=== PATIENT | female | born 1955 | race Caucasian/White ===

== ENCOUNTER 2021-02-03 06:58 | Day surgery (SDC) | payer MEDICARE, OTHER ==
[2021-01-30 09:15] VITALS: BMI 25.0
[~2021-02-03 06:58] MED LIST: DEXAMETHASONE SOD PHOSPHATE 4 MG/ML 1 ML VIAL IV ONE; LACTATED RINGERS 1,000 ML IV SCH; ONDANSETRON 4 MG/2 ML VIAL IVP ONE; SODIUM CHLORIDE 0.9% 1,000 ML IV SCH
[2021-02-03] MEDS ORDERED: SODIUM CHLORIDE 0.9% 500 ML 500 ML IV ONE (07:41)
[2021-02-03 07:51] VITALS: RESP 16; TEMP 98.7
[2021-02-03 08:15] LABS: African American GFR (CKD) >90 (>60 ml/min/1.73 sqM); Anion Gap 9 mmol/L; Blood Urea Nitrogen 11 mg/dL (7-17); Calcium 10.4 mg/dL (8.4-10.2); Carbon Dioxide 21 mmol/L (22-30); Chloride 109 mmol/L (98-107); Glucose 114 mg/dL (74-99); Non-African American GFR(CKD) >90 (>60 ml/min/1.73 sqM); Potassium 4.7 mmol/L (3.5-5.1); Sodium 139 mmol/L (137-145)
[2021-02-03] MEDS ORDERED: BENZOCAINE SPRAY 1 CAN MUCOUS MEM ONE (08:35)
[2021-02-03] MEDS ORDERED: LIDOCAINE 1% INJ 10MG/ML (20 ML MDV) ONE (09:30)
[2021-02-03] MEDS ORDERED: PROPOFOL 10 MG/ML 20 ML VIAL IV ONE (09:30)
[2021-02-03] MEDS ORDERED: SODIUM CHLORIDE 0.9% 1,000 ML IV SCH (10:30)
--- NOTE | 2021-02-03 10:45 | P.TEE ---
Indications for Procedure(s): Persistent atrial fibrillation Date of Procedure: 02/03/21 Preoperative Diagnosis: Atrial fibrillation Postoperative Diagnosis: Successful cardioversion to sinus rhythm Procedure(s) Performed: JUAN followed by cardioversion Description of Procedure(s): INDICATION: This patient was recently admitted to the hospital with atrial fibrillation with RVR. Patient's Rate is controlled and anticoagulated. She has history of hypertrophic cardiomyopathy . Patient is advised to have cardioversion CONSENT: . Informed verbal consent is obtained from the patient PROCEDURE: . Patient was brought to the lab in a fasting state. Patient prepped and draped in the usual fashion. Patient is given sedation by department of anesthesia. A lubricated Omni probe was introduced into the oropharynx and not advancing into the esophagus. Multiple views were obtained. Saline contrast bubble injection was performed . Color, pulsed and continuous a Doppler studies were performed. Patient tolerated the procedure well. Patient was not found of any clot in the left atrial appendage. Patient went on to have cardioversion FINDINGS: . The aortic valve is tricuspid with mildly restricted opening excursion with a valve area about 1.9 cm. There appears to be subaortic stenosis with moderate gradient. There is moderate mitral regurgitation. Mitral valve appeared to be slightly thickened. Left atrial appendage is free of any clot. The interatrial septum is intact. There is biatrial enlargement. Left ventricular function appears to be preserved IMPRESSION: . No clot in left atrial appendage. We will proceed with cardioversion. Mild aortic stenosis. Moderate outflow gradient. Moderate to severe concentric hypertrophy. Preserved LV function PLAN: . Proceed with cardioversion
--- NOTE | 2021-02-03 10:47 | P.PCN ---
Date of Procedure: 02/03/21 Preoperative Diagnosis: Atrial fibrillation Postoperative Diagnosis: Successful cardioversion to sinus rhythm Procedure(s) Performed: Cardioversion Description of Procedure: Patient was evaluated by JUAN examination. No clot was noted in the left atrial appendage. Patient went on to have cardioversion. CARDIOVERSION: Patient was given sedation by department of anesthesia. Anteroposterior paddles were applied. Synchronized shock of 75 J followed by one 25 J was applied. Patient converted to sinus rhythm. No immediate complications. Final impression:. Successful cardioversion to sinus rhythm
[2021-02-03 11:01] VITALS: PULSE 72
[2021-02-03 11:19] VITALS: BP 162/81
== END 2021-02-03 11:22 | disposition home or self-care (01) ==
LOC: CATHCVL 06:58
PROVIDERS: ATTEND Internal Medicine Cardiovascular Disease
DX: I48.91 Unspecified atrial fibrillation (principal); I35.0 Nonrheumatic aortic (valve) stenosis; F17.210 Nicotine dependence, cigarettes, uncomplicated; Z79.01 Long term (current) use of anticoagulants; Z79.899 Other long term (current) drug therapy
CPT/HCPCS: 93312; 93320; 93325; 92960; 80048; 87635; J2001; J2704

== ENCOUNTER → 2021-02-26 | Day surgery (SDC) | payer MEDICARE, OTHER ==
[~2021-02-26] MED LIST changes: -DEXAMETHASONE SOD PHOSPHATE 4 MG/ML 1 ML VIAL IV ONE; -LACTATED RINGERS 1,000 ML IV SCH; +LIDOCAINE 1% INJ 10MG/ML (20 ML MDV) ONE; -ONDANSETRON 4 MG/2 ML VIAL IVP ONE; +PROPOFOL 10 MG/ML 20 ML VIAL IV ONE; +SODIUM CHLORIDE 0.9% 500 ML 500 ML IV ONE
[2021-02-26 11:16] VITALS: RESP 16
[2021-02-26 12:08] VITALS: BP 145/86
[2021-02-26 12:21] VITALS: PULSE 73
--- NOTE | 2021-02-27 12:54 | P.PCN ---
Date of Procedure: 02/26/21 Preoperative Diagnosis: Persistent atrial fibrillation Postoperative Diagnosis: Successful conversion to sinus rhythm Procedure(s) Performed: Cardioversion Description of Procedure: PROCEDURE NOTE: CARDIOVERSION. Patient was brought to the lab in a fasting state. Patient was prepped and draped in the usual fashion. Department of anesthesia provided anesthesia. Anterior posterior paddles were applied. A single shock of 120 J was applied. Patient converted to sinus rhythm. Tolerated the procedure well. No immediate complications. Final impression: Successful cardioversion to sinus rhythm. Plan: Patient will be discharged home in 2-3 hours. Patient will continue home medication including amiodarone and anticoagulation. Follow-up in the office in one week
== END | disposition home or self-care (01) ==
LOC: CATHCVL 08:21
PROVIDERS: ATTEND Internal Medicine Cardiovascular Disease
DX: I48.19 Other persistent atrial fibrillation (principal); I42.2 Other hypertrophic cardiomyopathy; Z20.822 Contact with and (suspected) exposure to COVID-19; I08.0 Rheumatic disorders of both mitral and aortic valves; E07.9 Disorder of thyroid, unspecified; F17.210 Nicotine dependence, cigarettes, uncomplicated; Z79.01 Long term (current) use of anticoagulants; Z79.899 Other long term (current) drug therapy; Z88.0 Allergy status to penicillin
CPT/HCPCS: 92960; 87635; J2001; J2704

== ENCOUNTER → 2021-06-03 | Day surgery (SDC) | payer MEDICARE, OTHER ==
[2021-06-02 09:24] VITALS: BMI 25.4
[~2021-06-03] MED LIST changes: +ALPRAZolam 0.25 MG TAB PO PRN; +ALPRAZolam 0.5 MG TAB PO PRN; +ASPIRIN 325 MG TAB PO STA; +ATORVASTATIN 80 MG TAB PO STA; +HEPARIN SODIUM,PORCINE 10,000 UNIT in SODIUM CHLORIDE 0.9% 1,000 ML IRRIGATION PRN; +HEPARIN SODIUM,PORCINE 2,500 UNIT in SODIUM CHLORIDE 0.9% 250 ML IRRIGATION PRN; -LIDOCAINE 1% INJ 10MG/ML (20 ML MDV) ONE; +NITROGLYCERIN SL TABS 0.4 MG TAB SUBLINGUAL PRN; -PROPOFOL 10 MG/ML 20 ML VIAL IV ONE; +SODIUM CHLORIDE 0.9% 1,000 ML IV ONE; -SODIUM CHLORIDE 0.9% 1,000 ML IV SCH; +SODIUM CHLORIDE 0.9% 1,000 ML in EMPTY BAG 1 BAG IV SCH; -SODIUM CHLORIDE 0.9% 500 ML 500 ML IV ONE
[2021-06-03 08:52] VITALS: PULSE 78; RESP 16; TEMP 98.2
[2021-06-03 08:57] LABS: Anisocytosis Moderate; HCT 44.6 % (34.0-46.0); HGB 13.5 gm/dL (11.4-16.0); Hypochromasia Moderate; MCH 22.4 pg (25.0-35.0); MCHC 30.1 g/dL (31.0-37.0); MCV 74.3 fL (80.0-100.0); Mean Platelet Volume 8.9; Microcytosis Moderate; RDW 20.7 % (11.5-15.5)
[2021-06-03 09:07] LABS: African American GFR (CKD) >90 (>60 ml/min/1.73 sqM); Anion Gap 8 mmol/L; Blood Urea Nitrogen 17 mg/dL (7-17); Calcium 9.6 mg/dL (8.4-10.2); Carbon Dioxide 22 mmol/L (22-30); Chloride 111 mmol/L (98-107); Glucose 114 mg/dL (74-99); Non-African American GFR(CKD) 87 (>60 ml/min/1.73 sqM); Potassium 4.2 mmol/L (3.5-5.1); Sodium 141 mmol/L (137-145)
[2021-06-03 09:12] VITALS: BP 174/81
[2021-06-03 09:29] LABS: Platelet Count 1335 k/uL (150-450)
[2021-06-03 10:19] LABS: Basophils # (M) 0.44 k/uL (0-0.2); Eosinophils # (M) 1.76 k/uL (0-0.7); Lymphocytes # (M) 0.88 k/uL (1.0-4.8); Monocytes # (M) 1.76 k/uL (0-1.0); Neutrophils # (M) 17.16 k/uL (1.3-7.7); Neutrophils % (M) 78 %; Nucleated Red Blood Cells 0 /100 WBC (0-0); Total Cells Counted 100
[2021-06-03 10:21] LABS: Large Platelets Present; Poikilocytosis (M) Present; Target Cells Present
--- NOTE | 2021-06-04 09:01 | P.PN ---
Progress Note - Text Progress Note Date: 06/04/21 This patient is scheduled to have cardiac catheterization. She claimed that she is being treated for UTI and lab values showed a high white count and also thrombocytosis. The procedure was canceled and patient is advised to see primary care physician for further evaluation of abnormalities on CBC. The catheterization will be scheduled in the future
== END ==
LOC: CATHCVL 08:19
PROVIDERS: ATTEND Internal Medicine Cardiovascular Disease
DX: I48.19 Other persistent atrial fibrillation (principal); R94.39 Abnormal result of other cardiovascular function study; I42.2 Other hypertrophic cardiomyopathy; Z53.8 Procedure and treatment not carried out for other reasons; Z72.0 Tobacco use; Z20.822 Contact with and (suspected) exposure to COVID-19; I08.0 Rheumatic disorders of both mitral and aortic valves; D72.829 Elevated white blood cell count, unspecified; D75.839 Thrombocytosis, unspecified; Z79.01 Long term (current) use of anticoagulants; Z79.890 Hormone replacement therapy; Z79.899 Other long term (current) drug therapy; Z88.0 Allergy status to penicillin
CPT/HCPCS: 80048; 85025; 87635

== ENCOUNTER 2021-06-17 14:29 | Emergency (ER) | payer MEDICARE, OTHER ==
[2021-06-17 14:33] VITALS: RESP 18; TEMP 97.2
--- NOTE | 2021-06-17 16:59 | ED ---
General Adult HPI - General Chief complaint: Chest Pain Stated complaint: chest pain & SOB Time Seen by Provider: 06/17/21 16:42 Source: patient Mode of arrival: wheelchair Limitations: no limitations - History of Present Illness Initial comments: Dictation was produced using [employer] dictation software. please excuse any grammatical, word or spelling errors. Chief Complaint: 66-year-old female past medical history A. fib, hypertension thyroid disease presents to the emergency department for shortness of breath and chest pain History of Present Illness: C6-year-old female she was recently hospitalized. Patient states that she had a procedure to treat A. fib. She had an ablation procedure. She was scheduled to have a cardiac cath shortly after however due to elevated white blood cell count Procedure was canceled. Patient was told that her white blood cell count was double the normal. She presents to the emergency department for shortness of breath and chest pain. She states the pain as sharp and nonpleuritic. Nonradiating. Not associated with nausea or diaphoresis. She denies any chest pain at this time. States she's been having episodes for the last several days. Patient also notes black stools. She denies any abdominal pain. At the bedside she states she feels fine except for some mild lightheadedness. Patient reports that she has had several days of dark stools. The ROS documented in this emergency department record has been reviewed and confirmed by me. Those systems with pertinent positive or negative responses have been documented in the HPI. All other systems are other negative and/or no ncontributory. PHYSICAL EXAM: General Impression: Alert and oriented x3, not in acute distress HEENT: Normocephalic atraumatic, extra-ocular movements intact, pupils equal and reactive to light bilaterally, mucous membranes moist. Cardiovascular: Heart regular rate and rhythm Chest: Able to complete full sentences, no retractions, no tachypnea Abdomen: abdomen soft, non-tender, non-distended, no organomegaly Musculoskeletal: Pulses present and equal in all extremities, no peripheral edema Motor: no focal deficits noted Neurological: CN II-XII grossly intact, no focal motor or sensory deficits noted Skin: Intact with no visualized rashes Psych: Normal affect and mood Rectal exam: There is no melanotic residue in the rectal vault ED course: 66-year-old female presents to the emergency department for chest pain, dizziness and dark stools. Vital signs upon arrival shows heart rate of 49 cumbersome vital signs within acceptable limits. Patient's medications were reviewed. She is on diltiazem and metoprolol. She reports atypical chest pain and dark stools. Laboratory evaluation obtained. Hemoglobin is 8.6. Leukocytosis of 31.1. She had a leukocytosis at 22.0 just 2 weeks ago. She does not have any localizing symptoms. Plenty count is 1826. Up from 1335 2 weeks ago. There is microcytosis. Coag panel is unremarkable. Metabolic panel within acceptable limits. Troponin 0.029. Stool occult blood is positive. Checks x-ray shows no acute processes. We do not have GI coverage of her hospital this week. Patient be transferred to [facility]. He is discussed with Dr. Grigsby who is willing to accept patients care for ER to ER transfer. Patient is agreeable with disposition plan. Repeat vital signs are stable. Patient given Protonix started on IV fluids. Patient's chest pain is atypical. EKG interpretation: Ventricular rate 52, A. fib slow ventricular response, QS 95, QTC 500. no QTC prolongation, no ST or T-wave changes noted. EKG compared to 02/26/2021 showing no changes. Overall, this EKG is unremarkable - Related Data Home Medications Medication Instructions Recorded Confirmed Apixaban [Eliquis] 5 mg PO BID 01/30/21 06/03/21 Diltiazem HCl [Diltiazem HCl 24Hr 120 mg PO DAILY 01/30/21 06/03/21 ER (CD)] Levothyroxine Sodium [Synthroid] 75 mcg PO DAILY 01/30/21 06/03/21 Metoprolol Tartrate [Lopressor] 25 mg PO BID 01/30/21 06/03/21 Aspirin [Adult Low Dose Aspirin EC] 81 mg PO Q2D 06/02/21 06/03/21 Nitrofurantoin Macrocrystal 100 mg PO BID 06/02/21 06/03/21 [Macrodantin] Allergies Allergy/AdvReac Type Severity Reaction Status Date / Time No Known Allergies Allergy Verified 06/03/21 08:41 Review of Systems ROS Statement: Those systems with pertinent positive or pertinent negative responses have been documented in the HPI. ROS Other: All systems not noted in ROS Statement are negative. Past Medical History Past Medical History: Atrial Fibrillation, Hypertension, Thyroid Disorder Additional Past Medical History / Comment(s): See Dr Alegre H&P. CURRENTLY ON ANTIBIOTICS FOR UTI-INSTRUCTED TO NOTIFY DR. ALEGRE History of Any Multi-Drug Resistant Organisms: None Reported Past Surgical History: Appendectomy, Back Surgery Additional Past Surgical History / Comment(s): Cardioversion X2 Past Anesthesia/Blood Transfusion Reactions: No Reported Reaction Past Psychological History: No Psychological Hx Reported Smoking Status: Current every day smoker Past Alcohol Use History: None Reported Past Drug Use History: None Reported - Past Family History Mother Family Medical History: No Reported History General Exam Limitations: no limitations Course Vital Signs 06/17/21 06/17/21 14:30 17:40 Temperature 97.2 F L Pulse Rate 49 L 68 Respiratory 18 18 Rate Blood Pressure 98/50 121/64 O2 Sat by Pulse 100 99 Oximetry Medical Decision Making - Lab Data Result diagrams: 06/17/21 17:07 06/17/21 17:07 Lab Results 06/17/21 06/17/21 06/17/21 Range/Units 16:55 17:00 17:07 WBC 31.1 H (3.8-10.6) k/uL RBC 3.90 (3.80-5.40) m/uL Hgb 8.6 L D (11.4-16.0) gm/dL Hct 29.9 L (34.0-46.0) % MCV 76.6 L (80.0-100.0) fL MCH 22.0 L (25.0-35.0) pg MCHC 28.7 L (31.0-37.0) g/dL RDW 21.6 H (11.5-15.5) % Plt Count 1826 H* (150-450) k/uL MPV 8.5 Neutrophils % 74 % Lymphocytes % 9 % Monocytes % 6 % Eosinophils % 4 % Basophils % 3 % Neutrophils # 23.1 H (1.3-7.7) k/uL Lymphocytes # 2.8 (1.0-4.8) k/uL Monocytes # 1.7 H (0-1.0) k/uL Eosinophils # 1.2 H (0-0.7) k/uL Basophils # 1.1 H (0-0.2) k/uL Manual Slide Review Performed Toxic Granulation Present Large Platelets Present Polychromasia Present Hypochromasia Marked Poikilocytosis Slight Poikilocytosis (manual Present Anisocytosis Moderate Microcytosis Moderate PT (9.0-12.0) sec INR (<1.2) APTT (22.0-30.0) sec Sodium (137-145) mmol/L Potassium (3.5-5.1) mmol/L Chloride (98-107) mmol/L Carbon Dioxide (22-30) mmol/L Anion Gap mmol/L BUN (7-17) mg/dL Creatinine (0.52-1.04) mg/dL Est GFR (CKD-EPI)AfAm (>60 ml/min/1.73 sqM) Est GFR (CKD-EPI)NonAf (>60 ml/min/1.73 sqM) Glucose (74-99) mg/dL Plasma Lactic Acid Jaron (0.7-2.0) mmol/L Calcium (8.4-10.2) mg/dL Magnesium (1.6-2.3) mg/dL Total Bilirubin (0.2-1.3) mg/dL AST (14-36) U/L ALT (4-34) U/L Alkaline Phosphatase (38-126) U/L Troponin I (0.000-0.034) ng/mL Total Protein (6.3-8.2) g/dL Albumin (3.5-5.0) g/dL Stool Occult Blood (Negative) Blood Type O Positive Blood Type Confirm O Positive Blood Type Recheck No Previous Record Bld Type Recheck Status CABO Indicated Antibody Screen NEGATIVE Spec Expiration Date 06/20/2021 - 229906/17/21 06/17/21 06/17/21 Range/Units 17:07 17:07 17:07 WBC (3.8-10.6) k/uL RBC (3.80-5.40) m/uL Hgb (11.4-16.0) gm/dL Hct (34.0-46.0) % MCV (80.0-100.0) fL MCH (25.0-35.0) pg MCHC (31.0-37.0) g/dL RDW (11.5-15.5) % Plt Count (150-450) k/uL MPV Neutrophils % % Lymphocytes % % Monocytes % % Eosinophils % % Basophils % % Neutrophils # (1.3-7.7) k/uL Lymphocytes # (1.0-4.8) k/uL Monocytes # (0-1.0) k/uL Eosinophils # (0-0.7) k/uL Basophils # (0-0.2) k/uL Manual Slide Review Toxic Granulation Large Platelets Polychromasia Hypochromasia Poikilocytosis Poikilocytosis (manual Anisocytosis Microcytosis PT 11.9 (9.0-12.0) sec INR 1.1 (<1.2) APTT 25.1 (22.0-30.0) sec Sodium 139 (137-145) mmol/L Potassium 4.9 (3.5-5.1) mmol/L Chloride 110 H (98-107) mmol/L Carbon Dioxide 19 L (22-30) mmol/L Anion Gap 10 mmol/L BUN 29 H (7-17) mg/dL Creatinine 1.00 (0.52-1.04) mg/dL Est GFR (CKD-EPI)AfAm 69 (>60 ml/min/1.73 sqM) Est GFR (CKD-EPI)NonAf 60 (>60 ml/min/1.73 sqM) Glucose 107 H (74-99) mg/dL Plasma Lactic Acid Jaron 1.6 (0.7-2.0) mmol/L Calcium 9.3 (8.4-10.2) mg/dL Magnesium 2.2 (1.6-2.3) mg/dL Total Bilirubin 1.0 (0.2-1.3) mg/dL AST 54 H (14-36) U/L ALT 26 (4-34) U/L Alkaline Phosphatase 158 H (38-126) U/L Troponin I (0.000-0.034) ng/mL Total Protein 6.8 (6.3-8.2) g/dL Albumin 3.4 L (3.5-5.0) g/dL Stool Occult Blood (Negative) Blood Type Blood Type Confirm Blood Type Recheck Bld Type Recheck Status Antibody Screen Spec Expiration Date 06/17/21 06/17/21 Range/Units 17:07 17:07 WBC (3.8-10.6) k/uL RBC (3.80-5.40) m/uL Hgb (11.4-16.0) gm/dL Hct (34.0-46.0) % MCV (80.0-100.0) fL MCH (25.0-35.0) pg MCHC (31.0-37.0) g/dL RDW (11.5-15.5) % Plt Count (150-450) k/uL MPV Neutrophils % % Lymphocytes % % Monocytes % % Eosinophils % % Basophils % % Neutrophils # (1.3-7.7) k/uL Lymphocytes # (1.0-4.8) k/uL Monocytes # (0-1.0) k/uL Eosinophils # (0-0.7) k/uL Basophils # (0-0.2) k/uL Manual Slide Review Toxic Granulation Large Platelets Polychromasia Hypochromasia Poikilocytosis Poikilocytosis (manual Anisocytosis Microcytosis PT (9.0-12.0) sec INR (<1.2) APTT (22.0-30.0) sec Sodium (137-145) mmol/L Potassium (3.5-5.1) mmol/L Chloride (98-107) mmol/L Carbon Dioxide (22-30) mmol/L Anion Gap mmol/L BUN (7-17) mg/dL Creatinine (0.52-1.04) mg/dL Est GFR (CKD-EPI)AfAm (>60 ml/min/1.73 sqM) Est GFR (CKD-EPI)NonAf (>60 ml/min/1.73 sqM) Glucose (74-99) mg/dL Plasma Lactic Acid Jaron (0.7-2.0) mmol/L Calcium (8.4-10.2) mg/dL Magnesium (1.6-2.3) mg/dL Total Bilirubin (0.2-1.3) mg/dL AST (14-36) U/L ALT (4-34) U/L Alkaline Phosphatase (38-126) U/L Troponin I 0.029 (0.000-0.034) ng/mL Total Protein (6.3-8.2) g/dL Albumin (3.5-5.0) g/dL Stool Occult Blood Positive H (Negative) Blood Type Blood Type Confirm Blood Type Recheck Bld Type Recheck Status Antibody Screen Spec Expiration Date Critical Care Time Critical Care Time: Yes Total Critical Care Time: 33 Disposition Clinical Impression: GI bleed, Symptomatic anemia Disposition: OTHER INSTITUTION NOT DEFINED Condition: Serious Referrals: Tate Bailey MD [Primary Care Provider] - 1-2 days - Out of Hospital Transfer - Req. Specs Out of Hospital Transfer - Requested Specifics: Other Emergency Center ([facility])
[2021-06-17 17:18] LABS: Anisocytosis Moderate; Basophils # (A) 1.1 k/uL (0-0.2); Basophils % (A) 3 %; Eosinophils # (A) 1.2 k/uL (0-0.7); Eosinophils % (A) 4 %; HCT 29.9 % (34.0-46.0); Hypochromasia Marked; Lymphocytes # (A) 2.8 k/uL (1.0-4.8); Lymphocytes % (A) 9 %; MCHC 28.7 g/dL (31.0-37.0); MCV 76.6 fL (80.0-100.0); Mean Platelet Volume 8.5; Microcytosis Moderate; Monocytes # (A) 1.7 k/uL (0-1.0); Monocytes % (A) 6 %; Neutrophils # (A) 23.1 k/uL (1.3-7.7); Neutrophils % (A) 74 %; Poikilocytosis Slight; RDW 21.6 % (11.5-15.5); WBC 31.1 k/uL (3.8-10.6)
[2021-06-17 17:27] LABS: Albumin 3.4 g/dL (3.5-5.0); Calcium 9.3 mg/dL (8.4-10.2); Magnesium 2.2 mg/dL (1.6-2.3); Potassium 4.9 mmol/L (3.5-5.1); Total Protein 6.8 g/dL (6.3-8.2)
[2021-06-17 17:40] LABS: INR 1.1 (<1.2); Partial Thromboplastin Time 25.1 sec (22.0-30.0); Prothrombin Time 11.9 sec (9.0-12.0)
[2021-06-17 17:49] LABS: HGB 8.6 gm/dL (11.4-16.0)
[2021-06-17 17:50] LABS: Platelet Count 1826 k/uL (150-450)
--- NOTE | 2021-06-17 17:50 | XR ---
EXAMINATION TYPE: XR chest 1V DATE OF EXAM: 06/17/2021 5:38 PM COMPARISON:None TECHNIQUE: XR chest 1V one view. CLINICAL INDICATION:Female, 66 years old with history of chest pain; FINDINGS: Lungs/Pleura: There is no evidence of pleural effusion, focal consolidation, or pneumothorax. Pulmonary vascularity: Unremarkable. Heart/mediastinum: Cardiomediastinal silhouette is prominent in size. Musculoskeletal: No acute osseous pathology. IMPRESSION: No acute cardiopulmonary disease/process.
[2021-06-17 18:09] LABS: Large Platelets Present; Poikilocytosis (M) Present; Polychromasia Present; Toxic Granulation Present
[2021-06-17] MEDS ORDERED: PANTOPRAZOLE 40 MG/10 ML VIAL IVP STA (18:35)
[2021-06-17] MEDS ORDERED: SODIUM CHLORIDE 0.9% 1,000 ML IV STA (18:37)
[2021-06-17 18:49] VITALS: BP 120/62; PULSE 75
== END 2021-06-17 19:15 | disposition other institution (70) ==
LOC: EC 14:29
DX: D64.89 Other specified anemias (principal); K92.2 Gastrointestinal hemorrhage, unspecified; I48.91 Unspecified atrial fibrillation; I10 Essential (primary) hypertension; E07.9 Disorder of thyroid, unspecified; F17.200 Nicotine dependence, unspecified, uncomplicated; Z79.01 Long term (current) use of anticoagulants; Z79.02 Long term (current) use of antithrombotics/antiplatelets; Z79.899 Other long term (current) drug therapy; Z90.49 Acquired absence of other specified parts of digestive tract
CPT/HCPCS: 99291; 96374; 36415; 93005; 86900; 86901; 80053; 83605; 83735; 84484; 85025; 85610; 85730; 86850; 82272; 71045; C9113

== ENCOUNTER 2021-09-15 08:53 | Day surgery (SDC) | payer MEDICARE, OTHER ==
[~2021-09-15 08:53] MED LIST changes: -SODIUM CHLORIDE 0.9% 1,000 ML IV ONE
[2021-09-15 09:46] VITALS: BP 129/63; PULSE 58; RESP 16; TEMP 99.2
[2021-09-15 09:55] LABS: African American GFR (CKD) >90 (>60 ml/min/1.73 sqM); Anion Gap 12 mmol/L; Blood Urea Nitrogen 14 mg/dL (7-17); Calcium 9.8 mg/dL (8.4-10.2); Carbon Dioxide 22 mmol/L (22-30); Chloride 107 mmol/L (98-107); Glucose 117 mg/dL (74-99); Non-African American GFR(CKD) 80 (>60 ml/min/1.73 sqM); Potassium 4.4 mmol/L (3.5-5.1); Sodium 141 mmol/L (137-145)
[2021-09-15 10:15] LABS: Anisocytosis Slight; HCT 40.6 % (34.0-46.0); HGB 12.5 gm/dL (11.4-16.0); Hypochromasia Marked; MCH 24.3 pg (25.0-35.0); MCHC 30.9 g/dL (31.0-37.0); MCV 78.8 fL (80.0-100.0); Mean Platelet Volume 8.7; Microcytosis Slight; Poikilocytosis Slight; RBC 5.16 m/uL (3.80-5.40); WBC 12.6 k/uL (3.8-10.6)
[2021-09-15 11:34] LABS: Band Neutrophils % 1 %; Basophils # (M) 0.13 k/uL (0-0.2); Eosinophils # (M) 0.88 k/uL (0-0.7); Lymphocytes # (M) 1.13 k/uL (1.0-4.8); Monocytes # (M) 1.13 k/uL (0-1.0); Myelocytes # (M) 0.13 k/uL (0); Myelocytes % 1 %; Neutrophils % (M) 75 %; Nucleated Red Blood Cells 0 /100 WBC (0-0); Total Cells Counted 200
[2021-09-15 11:38] LABS: Platelet Count 1041 k/uL (150-450)
== END 2021-09-15 12:40 | disposition home or self-care (01) ==
LOC: CATHCVL 08:53
PROVIDERS: ATTEND Internal Medicine Cardiovascular Disease
DX: I42.2 Other hypertrophic cardiomyopathy (principal); R94.39 Abnormal result of other cardiovascular function study; I10 Essential (primary) hypertension; Z53.8 Procedure and treatment not carried out for other reasons; Z88.0 Allergy status to penicillin; I48.19 Other persistent atrial fibrillation; Z20.822 Contact with and (suspected) exposure to COVID-19; D47.1 Chronic myeloproliferative disease; I34.0 Nonrheumatic mitral (valve) insufficiency; D64.9 Anemia, unspecified; Z79.890 Hormone replacement therapy; Z79.899 Other long term (current) drug therapy
CPT/HCPCS: 80048; 85025; 87635

== ENCOUNTER 2022-01-12 05:36 | Day surgery (SDC) | payer MEDICARE, OTHER ==
[2022-01-09 08:32] VITALS: BMI 25.0
[2022-01-12] MEDS ORDERED: SODIUM CHLORIDE 0.9% 1,000 ML in EMPTY BAG 1 BAG IV SCH (05:42)
[2022-01-12] MEDS ORDERED: ALPRAZolam 0.5 MG TAB PO PRN (05:42)
[2022-01-12] MEDS ORDERED: ALPRAZolam 0.25 MG TAB PO PRN (05:42)
[2022-01-12] MEDS ORDERED: NITROGLYCERIN SL TABS 0.4 MG TAB SUBLINGUAL PRN (05:42)
[2022-01-12 06:32] VITALS: RESP 18; TEMP 97.9
[2022-01-12 06:52] LABS: Anisocytosis Slight; HCT 45.3 % (34.0-46.0); HGB 14.5 gm/dL (11.4-16.0); Hypochromasia Moderate; MCH 30.8 pg (25.0-35.0); MCHC 31.9 g/dL (31.0-37.0); MCV 96.4 fL (80.0-100.0); Macrocytosis Slight; Mean Platelet Volume 8.8; Platelet Count 247 k/uL (150-450); RDW 18.3 % (11.5-15.5); WBC 8.3 k/uL (3.8-10.6)
[2022-01-12 06:57] LABS: African American GFR (CKD) >90 (>60 ml/min/1.73 sqM); Anion Gap 12 mmol/L; Blood Urea Nitrogen 13 mg/dL (7-17); Calcium 9.5 mg/dL (8.4-10.2); Carbon Dioxide 20 mmol/L (22-30); Chloride 108 mmol/L (98-107); Glucose 113 mg/dL (74-99); Non-African American GFR(CKD) >90 (>60 ml/min/1.73 sqM); Potassium 4.5 mmol/L (3.5-5.1); Sodium 140 mmol/L (137-145)
[2022-01-12] MEDS ORDERED: ATORVASTATIN 80 MG TAB PO ONE (07:00)
[2022-01-12] MEDS ORDERED: HEPARIN SODIUM,PORCINE 10,000 UNIT in SODIUM CHLORIDE 0.9% 1,000 ML IRRIGATION PRN (07:00)
[2022-01-12] MEDS ORDERED: ASPIRIN 325 MG TAB PO ONE (07:00)
[2022-01-12] MEDS ORDERED: HEPARIN SODIUM,PORCINE 2,500 UNIT in SODIUM CHLORIDE 0.9% 250 ML IRRIGATION PRN (07:00)
[2022-01-12] MEDS ORDERED: HEPARIN SODIUM 1,000 UN/ML (10ML VL) ONE (07:11)
[2022-01-12] MEDS ORDERED: VERAPAMIL 2.5 MG/ML 2 ML AMP ONE (07:12)
[2022-01-12] MEDS ORDERED: fentaNYL (PF) 50 MCG/ML 2 ML AMP ONE (07:12)
[2022-01-12 07:35] LABS: Basophils # (M) 0.08 k/uL (0-0.2); Lymphocytes # (M) 1.41 k/uL (1.0-4.8); Monocytes # (M) 0.75 k/uL (0-1.0); Neutrophils # (M) 6.06 k/uL (1.3-7.7); Neutrophils % (M) 73 %; Nucleated Red Blood Cells 0 /100 WBC (0-0); Total Cells Counted 100
[2022-01-12] MEDS: MIDAZOLAM 2 MG/2 ML VIAL IV ONE ×2 (07:44→07:59)
[2022-01-12] MEDS: fentaNYL (PF) 50 MCG/ML 2 ML AMP IV ONE ×2 (07:44→08:06)
[2022-01-12] MEDS ORDERED: LIDOCAINE 1% INJ 10MG/ML (30 ML VIAL-PF) SQ ONE (07:50)
[2022-01-12] MEDS ORDERED: VERAPAMIL SYRINGE (5 MG/10 ML) INTRAARTER ONE (07:55)
[2022-01-12] MEDS: NITROGLYCERIN 1000MCG/10ML SYRINGE INTRAARTER ONE ×3 (07:59→08:10)
[2022-01-12] MEDS ORDERED: HEPARIN SODIUM 1,000 UN/ML (10ML VL) IV ONE (08:01)
[2022-01-12] MEDS ORDERED: IOPAMIDOL-370 125ML BTL INJ ONE (08:41)
[2022-01-12] MEDS ORDERED: IOPAMIDOL-370 100ML BTL INJ ONE (08:54)
[2022-01-12 13:28] VITALS: BP 112/76; PULSE 56
--- NOTE | 2022-01-12 16:50 | P.CARDCATH ---
Description of Procedure: PROCEDURES PERFORMED: Left heart catheterization, bilateral coronary angiography, iFR circumflex INDICATION: Abnormal stress test, LVOT gradient, SOB CONSENT:I have discussed the risks, benefits and alternative therapies for the above-mentioned procedure and for both sedation/analgesia as well as necessary blood product administration, if indicated, as they pertain to this patient. The patient has indicated understanding and acceptance of the risks and procedures discussed. PROCEDURE: After the risks, benefits and alternatives of the above mentioned procedure explained in detail with the patient, informed consent was obtained. Patient was taken to the catheterization lab and prepped and draped in usual fashion. 1% lidocaine was used to anesthetize the right radial artery. A 6- Greek sheath was placed in the right radial artery using modified Seldinger technique. Initial angiograms were performed with a GFR 5 however patient did have significant spasm and therefore imaging was performed with what appeared to be a recurrent radial I attachment at the subclavian level. Surprisingly there was additional communication with the brachial artery at the elbow and able to get into the brachial artery without any further spasm. Left coronary angiography was performed with a 5-Greek JL 3.5 catheter and right coronary angiography was performed with a 5-Greek JR5 catheter in various views. A 5- Greek FR5 catheter was inserted into the left ventricle and pressure measurements were obtained. There was a significant gradient noted from the mid left ventricle across the LVOT with peak to peak gradient of 196 to 83 (gradient of 113mmHg). Given the abnormality was in the circumflex territory the decision was made to perform iFR of the circumflex. A 6-Greek CLS 3.5 guide catheter was easily engage the left main. Heparin was given for ACT greater than 250. A 0.014 pressure wire was advanced and normalized. Initial iFR was performed however there was a large amount of drift and therefore this was re-normalized. Again iFR was performed and this was normal at 0.96. The wire was pulled. The right radial sheath was removed and a TR band was placed with hemostasis achieved. The patient tolerated the procedure well. Patient was transported back to the post catheterization holding area in stable condition. Conscious Sedation: Patient was monitored under the direct supervision of vision of myself for conscious sedation using Versed and fentanyl for a total duration of 60 minutes HEMODYNAMICS: Aorta: 80/55 LV: 200/5, LVEDP 15-20 LVOT gradient peak to peak 196-83 (113mmHg) SELECTIVE CORONARY ARTERIOGRAPHY: LEFT MAIN: The left main is a large caliber vessel which bifurcates into the LAD and circumflex. There is no significant stenosis. LEFT ANTERIOR DESCENDING CORONARY ARTERY: LAD is a large caliber vessel which wraps around to the apex. There is mild 20-30% mid LAD stenosis and what appears to be bridging of the mid LAD. LEFT CIRCUMFLEX CORONARY ARTERY: Left circumflex is a large caliber vessel with a proximal circumflex 50% stenosis. RIGHT CORONARY ARTERY: The right coronary artery is a large caliber vessel which gives off a PDA and PLV branch and is the dominant vessel. There is mid RCA 30- 40% stenosis. FINAL IMPRESSION: 1. CAD as described above including 2030% mid LAD, 50% proximal circumflex, 30- 40% mid RCA stenosis 2. iFR circumflex normal at 0.96 3. Significant LVOT gradient with peak to peak 113 mmHg 4. Mildly elevated left sided filling pressures 5. High radial artery origin however additional communication with brachial artery at level of elbow. PLAN: 1. Aggressive risk factor modification per most recent ACC/AHA guidelines. 2. Majority of symptoms appear related to LVOT gradient and increase metoprolol as able.
== END 2022-01-12 12:40 | disposition home or self-care (01) ==
LOC: CATHCVL 05:36
PROVIDERS: ATTEND Internal Medicine
DX: I25.10 Atherosclerotic heart disease of native coronary artery without angina pectoris (principal); R94.39 Abnormal result of other cardiovascular function study; R06.02 Shortness of breath
CPT/HCPCS: 93458; 93799; 80048; 85025; C1769 ×4; C1887; C1894; J2250; J2001; J3010; J1644; Q9967 ×2

== ENCOUNTER 2022-08-18 07:15 | Day surgery (SDC) | payer MEDICARE, OTHER ==
[2022-08-04 14:20] VITALS: BMI 28.1
[2022-08-18] MEDS: SODIUM CHLORIDE 0.9% 1,000 ML IV SCH ×2 (08:23→23:32)
[2022-08-18] MEDS ORDERED: LIDOCAINE 1% INJ 10MG/ML (20 ML MDV) ONE (09:09)
[2022-08-18] MEDS ORDERED: MIDAZOLAM 2 MG/2 ML VIAL IV STA (09:09)
[2022-08-18] MEDS ORDERED: SUCCINYLCHOLINE CHLORIDE 200 MG/10 ML VIAL IV ONE (09:27)
[2022-08-18] MEDS ORDERED: PROPOFOL 10 MG/ML 20 ML VIAL IV ONE (09:27)
[2022-08-18] MEDS ORDERED: MIDAZOLAM 2 MG/2 ML VIAL ONE (09:27)
[2022-08-18] MEDS ORDERED: fentaNYL (PF) 50 MCG/ML 2 ML AMP ONE (09:27)
[2022-08-18] MEDS ORDERED: HEPARIN SODIUM,PORCINE 10,000 UNIT/ML 1 ML VIAL ONE (09:27)
[2022-08-18] MEDS ORDERED: HEPARIN SOD,PORK IN 0.45% NACL 25,000 UNIT in 0.45% NACL 1 250ML.BAG IV ONE (09:40)
[2022-08-18] MEDS ORDERED: LIDOCAINE 1% INJ 10MG/ML (20 ML MDV) SQ ONE (10:09)
[2022-08-18] MEDS ORDERED: LACTATED RINGERS 1,000 ML IV ONE (11:08)
[2022-08-18] MEDS ORDERED: IOPAMIDOL-370 100ML BTL INJ ONE (12:10)
[2022-08-18] MEDS ORDERED: ACETAMINOPHEN IV (For NPO) 1,000 MG in EMPTY BAG 1 BAG IVPB ONE (13:28)
[2022-08-18] MEDS ORDERED: ACETAMINOPHEN TAB 325 MG TAB PO PRN (13:28)
--- NOTE | 2022-08-18 13:39 | P.EPPROC ---
- EP Procedure Note Electrophysiology Procedure Note: PROCEDURE A. fib ablation, with pulmonary vein isolation and linear ablation in the left atrium DIAGNOSIS Persistent Atrial fibrillation, symptomatic, refractory to therapy, failed amiodarone, history of HCM RESULT No left atrial appendage mass seen on intracardiac echo, LVH, pericarditis with trace effusion of the base of the LV and posterior to the LA wall Large, and left sided pulmonary veins Successful A. fib ablation/pulmonary vein isolation of all veins using cryo- ablation Complete entrance block in all 4 veins confirmed Linear ablation left atrial roof Ablation of the left atrial septum No evidence for phrenic nerve injury Esophageal deflection YES Electrical cardioversion with a synchronized shock across the chest YES , for residual atrial tachycardia, concentric activation, cycle length 440 ms PROCEDURE DETAILS Written informed consent prior to procedure. Patient brought to the EP lab. General anesthesia given. Heparin administered. A city maintained above 300 seconds Both groins prepped and draped per protocol and venous sheaths placed. Esophagus intubated, circa catheter for temperature monitoring an endoscope for possible esophageal deflection. Phrenic nerve monitoring performed. Esophageal temperature monitoring performed. Esophageal deflection performed if circa catheter overlapping with the balloon or circa temperature less than 27.5C Intracardiac echocardiography performed. Pericardium evaluated. Left atrial appendage evaluated. Left atrium evaluated along with pulmonary veins Transseptal catheterization performed under fluoroscopic guidance and intracardiac echo guidance Cryoablation sheath exchanged, balloon catheter along with achieve catheter placed in the left atrium. Pulmonary veins isolated in the following sequence: Left superior pulmonary vein followed by left inferior pulmonary vein, followed by right inferior pulmonary vein and lastly right superior pulmonary vein. Phrenic nerve stimulation along with capture thresholds within the SVC and right superior pulmonary vein to identify the phrenic nerve proximity to the cryo- balloon. Pulmonary veins isolated and confirmed with entrance and exit block. Phrenic nerve integrity confirmed at the end of the procedure Ablation of the left atrial roof performed with sequential lesions from the left superior to the right superior pulmonary veins. Ablation of the electrograms confirmed Ablation of the left atrial septum performed with cannulation of the superior branch of the right inferior or the inferior branch of the right superior vein to achieve ablation of the posterior septum of the left atrium. Ablation of electrograms confirmed Electrical cardioversion performed for residual atrial tachycardia, cycle length 440 ms, concentric activation Diagnostic catheters for the high right atrium, His bundle, coronary sinus placed. LA and RA pressures recorded RA pressure: 13/8/10 LA pressure: 26/8/80 Diagnostic EP study with coronary sinus pacing and recording Baseline measurements: Sinus cycle length 1440 ms, CT interval 183 ms QRS 88 ms and QT 460 ms AH 82 ms and HV interval 52 minutes Venous sheaths were removed and hemostasis assured with a closure device. Patient extubated and transferred to recovery Increase procedural time During ablation multiple attempts had to be made to move the esophagus a safe distance of the from the pulmonary vein draining cryoablation, to avoid excessive thermal cooling of the esophagus This took extra time and effort to keep the esophagus a safe distance away from the cryoablation balloon. Multiple attempts needed for successful cryoablation isolation of the left common pulmonary vein. Isolation of the left superior pulmonary vein took extra time but is completely isolated A bullous lesion was applied to the left superior The left inferior vein required a bullous lesion Antral ablations in the vestibule of the left common vein were delivered for complete isolation PROCEDURES PERFORMED Diagnostic EP study CS pacing and recording Left and right transseptal catheterization Catheter the mapping of the tachycardia Intracardiac echocardiography Pulmonary vein isolation with transseptal and comprehensive EPS, [id number] Extended procedure duration Left atrial roof line, [id number] Linear ablation, left atrium, +[id number] Electrical cardioversion with a synchronized shock across the chest [id number]
--- NOTE | 2022-08-18 13:42 | P.HPCAR ---
History of Present Illness This is Dr. 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 fib History of thrombocytosis, on hydroxyurea Main symptoms include shortness of breath with exertion tiredness and fatigue PLAN: IV fluids preprocedure, Buckley catheter Avoidance of inotropes A. fib ablation with pulmonary vein isolation and linear ablation the left atrium HPI Patient remains in atrial fibrillation complaining of shortness of breath with exertion as well as tiredness and fatigue She has underlying hypertrophic at about the and was treated with oral amiodarone She underwent successful electrical cardioversion but A. fib recurred She denies any fever chills cough expectoration Denies any chest discomfort or syncope in the last week ROS: No fever chills or rigors, no cough, phlegm or expectoration, no nausea, vomiting or diarrhea, no hematuria, dysuria, no musculoskeletal complaints, no strokes or seizures, no skin lesions. EXAMINATION: 131/75 mmHg normal respirations pulse rate 74, afebrile Ejection systolic murmur over the precordium Clear lungs no rhonchi no crackles Abdomen soft No JVD No lower extremity REVIEW OF LABS, ECG & MEDICAL DATA Patient takes aspirin along with ELIQUIS On metoprolol 100 mg twice daily along with amiodarone 200 mg daily at this time Physical Exam Vitals: Vital Signs Temp Pulse Resp BP Pulse Ox 08/18/22 13:30 67 20 133/74 99 08/18/22 13:15 69 20 121/71 99 08/18/22 13:00 74 20 131/75 97 08/18/22 12:49 98 F 74 20 149/89 97 08/18/22 08:22 98 F 87 18 159/99 97 Intake and Output 08/17/22 08/18/22 08/18/22 22:59 06:59 14:59 Intake Total 1623 Output Total 225 Balance 1398 Intake: IV 1623 Output: Urine 225 Other: Weight 82.7 kg Past Medical History Past Medical History: Atrial Fibrillation, Blood Disorder, GERD/Reflux, Hypertension, Thyroid Disorder Additional Past Medical History / Comment(s): SEE DR CASTANEDA'S H&P. MYELOPROLIFERATIVE DISORDER. SOB. BLE EDEMA History of Any Multi-Drug Resistant Organisms: None Reported Past Surgical History: Appendectomy Additional Past Surgical History / Comment(s): BRODIE. CATARACT REMOVAL Past Anesthesia/Blood Transfusion Reactions: No Reported Reaction Past Psychological History: Anxiety Smoking Status: Never smoker Past Alcohol Use History: None Reported Past Drug Use History: None Reported - Past Family History Mother Family Medical History: No Reported History Physical Examination Vital Signs Temp Pulse Resp BP Pulse Ox 08/18/22 13:30 67 20 133/74 99 08/18/22 13:15 69 20 121/71 99 08/18/22 13:00 74 20 131/75 97 08/18/22 12:49 98 F 74 20 149/89 97 08/18/22 08:22 98 F 87 18 159/99 97 Intake and Output 08/17/22 08/18/22 08/18/22 22:59 06:59 14:59 Intake Total 1623 Output Total 225 Balance 1398 Intake: IV 1623 Output: Urine 225 Other: Weight 82.7 kg Results Current Medications Generic Name Dose Route Start Last Admin Trade Name Freq PRN Reason Stop Dose Admin Acetaminophen 650 mg 08/18/22 13:28 Acetaminophen Tab 325 Mg Tab PO 09/17/22 13:29 Q6HR PRN Mild Pain (Scale 1 to 3) Amiodarone HCl 200 mg 08/19/22 09:00 Amiodarone 200 Mg Tab PO 09/18/22 09:01 DAILY ESTEFANÍA Apixaban 5 mg 08/18/22 21:00 Apixaban 5 Mg Tab PO 09/17/22 21:01 BID [facility] Protocol Furosemide 20 mg 08/19/22 09:00 Furosemide 20 Mg Tab PO 09/18/22 09:01 DAILY ESTEFANÍA Hydroxyurea 500 mg 08/19/22 09:00 Hydroxyurea 500 Mg Cap PO 09/18/22 09:01 DAILY ESTEFANÍA Sodium Chloride 1,000 mls @ 20 mls/hr 08/18/22 05:42 08/18/22 08:23 Saline 0.9% IV 09/17/22 05:43 1,000 mls .Q24H ESTEFANÍA Administration Lactated Ringer's 1,000 mls @ 20 mls/hr 08/18/22 05:42 Lactated Ringers IV 09/17/22 05:43 .Q24H ESTEFANÍA Acetaminophen 1,000 mg/ IV 100 mls @ 400 mls/hr 08/18/22 13:28 Solution IVPB 08/18/22 13:42 ONCE ONE Levothyroxine Sodium 75 mcg 08/19/22 09:00 Levothyroxine 75 Mcg Tab PO 09/18/22 09:01 DAILY ESTEFANÍA Non-Formulary Medication 81 mg 08/19/22 09:00 Aspirin [Adult Low Dose Aspirin Ec] PO 09/18/22 09:01 DAILY ESTEFANÍA Non-Formulary Medication 50 mg 08/18/22 21:00 Metoprolol Tartrate [Lopressor] PO 09/17/22 21:01 BID ESTEFANÍA Non-Formulary Medication 20 mg 08/19/22 09:00 Pantoprazole Sodium [Pantoprazole Sodium] PO 09/18/22 09:01 DAILY [facility] Sodium Chloride 12 ml 08/18/22 13:28 Sodium Chloride 0.9% Flush 10 Ml Syringe IV 09/17/22 13:29 Q12HR PRN Line Flush Intake and Output 08/17/22 08/18/22 08/18/22 22:59 06:59 14:59 Intake Total 1623 Output Total 225 Balance 1398 Intake: IV 1623 Output: Urine 225 Other: Weight 82.7 kg Patient Weight 08/19/22 06:59 Weight 82.7 kg
--- NOTE | 2022-08-18 13:45 | P.PRLE ---
RE: Chase Polanco Dear Dr. Lynn Stone underwent successful ablation for atrial fibrillation including pulmonary venous isolation and linear ablation in the left atrial septum and the left atrial roof She will continue ELIQUIS and aspirin I would reduce the dose of metoprolol to 50 mrem twice daily and after 2 months the dose of amiodarone can be reduced to 100 mg by mouth daily Intracardiac echo did reveal a thickened pericardium small effusion at the base of the LV and posterior to the left atrium It is quite likely that she has had a viral infection the past resulting in per icarditis This may have contributed to her atrial fibrillation being refractory to therapy in the setting of hypertrophic cardio myopathy Thank you for entrusting me with the care of the patient Warm regards Sincerely Adi Castaneda
[2022-08-18] MEDS: LACTATED RINGERS 1,000 ML IV SCH ×2 (16:51→23:31)
[2022-08-18] MEDS: APIXABAN 5 MG TAB PO SCH (20:28)
[2022-08-18] MEDS: METOPROLOL TARTRATE 50 MG TAB PO SCH (20:28)
[2022-08-19] MEDS: LEVOTHYROXINE 75 MCG TAB PO SCH (05:11)
[2022-08-19] MEDS: PANTOPRAZOLE SODIUM 40 MG GRANULE PKT PO SCH (06:12)
[2022-08-19 07:44] LABS: Anisocytosis Slight; HCT 38.3 % (34.0-46.0); HGB 11.5 gm/dL (11.4-16.0); Hypochromasia Marked; MCH 27.6 pg (25.0-35.0); Mean Platelet Volume 9.1; Platelet Count 259 k/uL (150-450); RBC 4.16 m/uL (3.80-5.40); RDW 19.5 % (11.5-15.5)
[2022-08-19] MEDS: METOPROLOL TARTRATE 50 MG TAB PO SCH ×2 (08:49→20:17)
[2022-08-19] MEDS: FUROSEMIDE 20 MG TAB PO SCH (08:49)
[2022-08-19] MEDS: APIXABAN 5 MG TAB PO SCH ×2 (08:49→20:15)
[2022-08-19] MEDS: ASPIRIN 81 MG PO SCH (08:49)
--- NOTE | 2022-08-19 09:09 | P.PN ---
Subjective HISTORY OF PRESENT ILLNESS: This is a 67-year-old female who underwent A. fib ablation yesterday with Dr. Castaneda. Patient denies chest pain or pressure. She denies shortness of breath. Vital signs are stable. The patient does have a small hematoma noted to the left groin. PHYSICAL EXAM: VITAL SIGNS: Reviewed. GENERAL: Well-developed in no acute distress. NECK: Supple. No JVD or thyromegaly LUNGS: Respirations even and unlabored. Lungs essentially clear to auscultation bilaterally. HEART: Regular rate and rhythm. S1 and S2 heard. EXTREMITIES: Normal range of motion. No clubbing or cyanosis. Peripheral pulses intact. No lower extremity edema ASSESSMENT: Persistent atrial fibrillation, status post A. fib ablation, with pulmonary vein isolation and linear ablation in the left atrium PLAN: Continue current cardiac medications Continue to monitor patient for an additional 24 hours Anticipate discharge home tomorrow Nurse practitioner note has been reviewed by physician. Signing provider agrees with the documented findings, assessment, and plan of care. Objective - Vital Signs Vital signs: Vital Signs Temp 98.0 F 08/19/22 07:00 Pulse 65 08/19/22 07:00 Resp 17 08/19/22 08:00 BP 115/77 08/19/22 07:00 Pulse Ox 99 08/19/22 07:00 FiO2 Intake & Output 08/18/22 08/19/22 08/19/22 18:59 06:59 18:59 Intake Total 1623 Output Total 425 250 Balance 1198 -250 Weight 82.7 kg Intake: IV 1623 Output: Urine 425 250 Other: Voiding Method Toilet Toilet # Voids 1 - Labs CBC & Chem 7: 08/19/22 07:23 Labs: Abnormal Lab Results - Last 24 Hours (Table) 08/19/22 Range/Units 07:23 MCHC 30.0 L (31.0-37.0) g/dL RDW 19.5 H (11.5-15.5) %
[2022-08-19] MEDS: HYDROXYUREA 500 MG CAP PO SCH (09:22)
[2022-08-19] MEDS: AMIODARONE 200 MG TAB PO SCH (09:22)
[2022-08-19 10:02] LABS: Neutrophils % (M) 71 %; Nucleated Red Blood Cells 0 /100 WBC (0-0); Total Cells Counted 100
--- NOTE | 2022-08-19 14:14 | DS ---
DISCHARGE SUMMARY Chase Polanco is the patient of Dr. Casarez with hypertrophic cardiomyopathy who has very symptomatic atrial fibrillation. She complains of shortness of breath with exertion, tiredness and fatigue. She also has a significant LVOT gradient. 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 She remains on Eliquis and aspirin. She underwent an atrial fibrillation ablation yesterday. Successful isolation of all 4 pulmonary veins as well as the left atrial roof line. She does have a residual concentric atrial tachycardia that does not appear to be typical atrial flutter. She underwent successful electrical cardioversion for this. She is on amiodarone 200 mg p.o. daily. Today, she is resting comfortably in bed. Minimal discomfort in the chest, pleuritic. Mild sore throat. She has a fair amount of bruising in both groins, even though her vascular venous access sites . This is most likely related to her platelet bleeding disorder. There is no hematoma. No swelling in the groins. On examination, her blood pressure is 105/63 mmHg, heart rate is in the 70s. A 12-lead EKG shows sinus mechanism with secondary ST-T changes in the lateral precordial leads consistent with 8 cm. IMPRESSION: Hypertrophic obstructive cardiomyopathy with high resting gradient and audible systolic ejection murmur over the precordium. Persistent atrial fibrillation, status post successful pulmonary vein isolation at antral level as well as left atrial roof ablation with residual atrial tachycardia with a cycle length of about 440 milliseconds, concentric activation that on 12-lead EKG did not appear to be typical atrial flutter. She underwent electrical cardioversion for this. SUGGEST: Continue anticoagulation with Eliquis. Continue aspirin. Continue amiodarone 200 mg p.o. daily for 6 weeks and then reduce the dose down to 100 mg p.o. daily thereafter. If after 3 months, she has recurrence of atrial tachycardia, then an atrial tachycardia ablation will be recommended. She would also be a candidate for vladimiramten in the future and will see Dr. Casarez regarding this. I will keep her here for another 24 hours since she has platelet bleeding disorder. CBC with platelets will be ordered today and a followup CBC and platelets tomorrow. She does not have any hematoma in the groins, but she does have a fair amount of bruising in her skin and we will watch her hemoglobin over the next 24 hours. MMODL / IJN: [id number] /
[2022-08-19] MEDS: LACTATED RINGERS 1,000 ML IV SCH (21:09)
[2022-08-19] MEDS: SODIUM CHLORIDE 0.9% 1,000 ML IV SCH (21:10)
[2022-08-20] MEDS: LEVOTHYROXINE 75 MCG TAB PO SCH (06:43)
[2022-08-20 07:05] LABS: Anisocytosis Slight; HCT 35.6 % (34.0-46.0); HGB 10.9 gm/dL (11.4-16.0); Hypochromasia Marked; MCH 28.1 pg (25.0-35.0); MCHC 30.5 g/dL (31.0-37.0); MCV 91.9 fL (80.0-100.0); Mean Platelet Volume 9.7; Platelet Count 223 k/uL (150-450); RBC 3.87 m/uL (3.80-5.40); RDW 19.8 % (11.5-15.5); WBC 9.1 k/uL (3.8-10.6)
[2022-08-20 07:26] LABS: African American GFR (CKD) >90 (>60 ml/min/1.73 sqM); Anion Gap 8 mmol/L; Blood Urea Nitrogen 13 mg/dL (7-17); Calcium 8.5 mg/dL (8.4-10.2); Carbon Dioxide 25 mmol/L (22-30); Chloride 105 mmol/L (98-107); Glucose 98 mg/dL (74-99); Non-African American GFR(CKD) 80 (>60 ml/min/1.73 sqM); Potassium 3.7 mmol/L (3.5-5.1); Sodium 138 mmol/L (137-145)
[2022-08-20 07:47] VITALS: BP 130/82; PULSE 66; RESP 18; TEMP 97.7
[2022-08-20] MEDS: ASPIRIN 81 MG PO SCH (08:36)
[2022-08-20] MEDS: PANTOPRAZOLE SODIUM 40 MG GRANULE PKT PO SCH (08:36)
[2022-08-20] MEDS: HYDROXYUREA 500 MG CAP PO SCH (08:48)
[2022-08-20] MEDS: FUROSEMIDE 20 MG TAB PO SCH (08:48)
[2022-08-20] MEDS: APIXABAN 5 MG TAB PO SCH (08:48)
[2022-08-20] MEDS: METOPROLOL TARTRATE 50 MG TAB PO SCH (08:48)
[2022-08-20] MEDS: AMIODARONE 200 MG TAB PO SCH (08:48)
[2022-08-20 09:22] LABS: Eosinophils # (M) 0.36 k/uL (0-0.7); Lymphocytes # (M) 1.73 k/uL (1.0-4.8); Monocytes # (M) 0.73 k/uL (0-1.0); Neutrophils # (M) 6.28 k/uL (1.3-7.7); Neutrophils % (M) 69 %; Nucleated Red Blood Cells 0 /100 WBC (0-0); Total Cells Counted 100
[2022-08-20 09:24] LABS: Target Cells Present
--- NOTE | 2022-08-20 11:21 | P.DS ---
Providers Attending physician: Adi Castaneda Primary care physician: Tate Bailey MD Hospital Course: This is a 67-year-old female who underwent A. fib ablation with Dr. Castaneda. Patient examined this morning at the bedside. She denies chest pain or pressure. She denies shortness of breath. Vital signs are stable. The patient did develop a small hematoma to the left groin yesterday and she was observed for an additional 24 hours. Her hemoglobin has remained stable. No increase in size of her hematoma. She is stable for discharge home today from a cardiac standpoint. She was instructed to hold her aspirin for 1 week and then may resume at that time. She was instructed to continue her anticoagulation. Patient's metoprolol was decreased to 50 mg twice a day. Please see EMR for further hospital course details. Discharge diagnosis: Persistent atrial fibrillation, status post A. fib ablation, with pulmonary vein isolation and linear ablation in the left atrium Nurse practitioner note has been reviewed by physician. Signing provider agrees with the documented findings, assessment, and plan of care. Plan - Discharge Summary Discharge Rx Participant: Yes New Discharge Prescriptions: New Metoprolol Tartrate [Lopressor] 50 mg PO BID #60 tab Continue Furosemide [Lasix] 20 mg PO DAILY Apixaban [Eliquis] 5 mg PO BID Aspirin [Adult Low Dose Aspirin EC] 81 mg PO DAILY Pantoprazole Sodium 20 mg PO DAILY Levothyroxine Sodium [Synthroid] 75 mcg PO DAILY Amiodarone [Cordarone] 200 mg PO DAILY Hydroxyurea 500 mg PO DAILY Discontinued Metoprolol Tartrate [Lopressor] 100 mg PO BID Discharge Medication List Amiodarone [Cordarone] 200 mg PO DAILY 08/04/22 [History] Apixaban [Eliquis] 5 mg PO BID 08/04/22 [History] Aspirin [Adult Low Dose Aspirin EC] 81 mg PO DAILY 08/04/22 [History] Furosemide [Lasix] 20 mg PO DAILY 08/04/22 [History] Hydroxyurea 500 mg PO DAILY 08/04/22 [History] Levothyroxine Sodium [Synthroid] 75 mcg PO DAILY 08/04/22 [History] Pantoprazole Sodium 20 mg PO DAILY 08/04/22 [History] Metoprolol Tartrate [Lopressor] 50 mg PO BID #60 tab 08/20/22 [Rx] Follow up Appointment(s)/Referral(s): Jorje Casarez DO [STAFF PHYSICIAN] - 08/27/22 2:00 pm ([place] ) Patient Instructions/Handouts: Cardiac Ablation (DC) Activity/Diet/Wound Care/Special Instructions: HOLD ASPIRIN FOR ONE WEEK THEN RESUME CONTINUE ELIQUIS Post EP study - Ablation instructions 1. Keep access sites dry for 2 days. 2. No heavy lifting or straining for 2 days. 3. Avoid bending the hips repeatedly for 2 days. 4. You may go up and down stairs slowly Call if the following is noted 1. Bleeding, increasing swelling or pain at the access sites. 2. Increasing chest discomfort, especially upon taking a deep breath. 3. Increasing shortness of breath, at rest or with exertion. 4. Undue cough / phlegm 5. Difficulty or pain while swallowing. 6. Pain or change in color in the extremities. 7. Fever, chills, rigors. 8. Increasing headache or neurologic symptoms. 9. Dizziness, fainting, palpitations Discharge Disposition: HOME SELF-CARE
== END 2022-08-20 09:32 | disposition home or self-care (01) ==
LOC: MERGE 07:15 → CATHEP 07:15 → 6NMEDSUR 12:25 → CATHEP 08-20 09:32
PROVIDERS: ATTEND Internal Medicine Clinical Cardiac Electrophysiology
DX: I48.19 Other persistent atrial fibrillation (principal); I31.9 Disease of pericardium, unspecified; I47.1 Supraventricular tachycardia
CPT/HCPCS: 93656; 93657; 86900; 86901; 80048; 85025 ×2; 86850; C1894; C1769 ×3; C1760; C1730 ×2; C1759; C1893; C1733; C1766; S0176 ×2; J2250; J0330; J1644 ×2; J2001; J3010; J0131; J2704; Q9967; 93662

== ENCOUNTER → 2023-01-21 | Outpatient (CLI) | payer MEDICARE, OTHER ==
[2023-01-21 20:39] LABS: % Iron Saturation 75.46 (12.00-45.00); ALT 36 U/L (8-44); AST 67 U/L (13-35); Albumin/Globulin Ratio 0.88 Ratio (1.60-3.17); Alkaline Phosphatase 179 U/L (41-126); BUN/Creat Ratio 12.73 Ratio (12.00-20.00); Calcium 8.9 mg/dL (8.7-10.3); Carbon Dioxide 22.6 mmol/L (21.6-31.8); Chloride 109 mmol/L (96-109); Globulin 3.4 d/dL (1.6-3.3); Glucose 97 mg/dL (70-110); Iron 163 UG/DL (50-170); Potassium 3.8 mmol/L (3.5-5.5); Sodium 142 mmol/L (135-145); Total Bilirubin 1.7 mg/dL (0.3-1.2); Total Iron Binding Capacity 216 UG/DL (228-460); Total Protein 6.4 d/dL (6.2-8.2)
[2023-01-21 20:47] LABS: Albumin 2.8 d/dL (3.8-4.9); Protein, Total 6.3 d/dL (6.2-8.2)
[2023-01-21 20:49] LABS: Ceruloplasmin 23.6 mg/dL (20.0-60.0)
[2023-01-22 01:46] LABS: HCT 36.3 % (37.2-46.3); HGB 10.3 d/dL (12.0-15.0); MCH 29.3 pg (27.0-32.0); MCHC 28.4 d/dL (32.0-37.0); MCV 103.4 FL (80.0-97.0); Mean Platelet Volume 11.5 FL (9.5-12.2); NRBC Per 100 WBC 0 X 10*3/uL (0.00-0.01); Platelet Count 351 X 10*3/uL (140-440); RBC 3.51 X 10*6/uL (4.10-5.20); RDW 22.9 % (11.5-14.5); WBC 4.68 X 10*3/uL (4.50-10.00)
[2023-01-22 02:18] LABS: Anisocytosis (M) 2+; Basophils # (A) 0.09 X 10*3/uL (0.00-0.10); Basophils % (A) 1.9 %; Eosinophils # (A) 0.14 X 10*3/uL (0.04-0.35); Lymphocytes # (A) 0.85 X 10*3/uL (0.90-5.00); Lymphocytes % (A) 18.2 %; Monocytes % (A) 21.4 %; Neutrophils # (A) 2.55 X 10*3/uL (1.80-7.70); Neutrophils % (A) 54.4 %
== END | disposition home or self-care (01) ==
LOC: LABWHC1 14:37
PROVIDERS: ATTEND Internal Medicine Gastroenterology
DX: K76.0 Fatty (change of) liver, not elsewhere classified (principal); R94.5 Abnormal results of liver function studies
CPT/HCPCS: 36415; 80053; 82103; 82390; 82728; 83516; 83540; 83550; 84165; 85025; 86038